=== PATIENT | female | born 1975 | race Caucasian/White ===

== ENCOUNTER 2018-01-25 10:28 | Emergency (ER) | payer OTHER ==
[~2018-01-25] VITALS: Ht 152.4 cm; Wt 88.0 kg
[2018-01-25 10:30] VITALS: BP 146/84; PULSE 79; RESP 18; TEMP 98.4; O2SAT 96
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
[2018-01-25] MEDS ORDERED: ONDANSETRON ODT 4 MG TAB PO ONE (11:30)
--- NOTE | 2018-01-25 11:38 | RADRPT ---
EXAM DATE: 01/25/2018 11:28 AM EDT AGE/SEX: 42 years / Female INDICATIONS: Right shoulder pain, box fell on patient at work today. CLINICAL DATA: This is the patient's initial encounter. Patient reports that signs and symptoms have been present for 1 day and indicates a pain score of 10/10. MEDICAL/SURGICAL HISTORY: None. None. COMPARISON: No prior [facility] exams available for comparison. FINDINGS: Bony structures are intact and in normal alignment. Joints are intact without dislocation or signifi cant arthropathy. Osseous density is normal. Soft tissues are unremarkable. No radiopaque foreign bodies seen. There is a calcified granuloma in the right upper lung. There is some spurring in the lo wer thoracic spine. CONCLUSION: 1. Negative right shoulder series. 2. Calcified granuloma right upper lobe. Electronically signed by: Brennon Triplett MD 01/25/2018 11:37 AM EDT
== END 2018-01-25 12:29 | disposition home or self-care (01) ==
LOC: PHEFT 10:28
DX: S40.011A Contusion of right shoulder, initial encounter (principal); W22.8XXA Striking against or struck by other objects, initial encounter; Z72.0 Tobacco use; Z88.2 Allergy status to sulfonamides
CPT/HCPCS: 73030; 99283